=== PATIENT | male | born 1965 | race Caucasian/White ===

== ENCOUNTER 2017-06-12 03:06 | Observation (INO) | payer BC, OTHER ==
[2017-06-12] MEDS ORDERED: Aspirin 81 MG Tab.Chew PO ONE (03:29)
[2017-06-12] MEDS ORDERED: Nitroglycerin 2% Oint 1 GM UD Packet TOP ONE (03:29)
[2017-06-12] MEDS ORDERED: Sodium Chloride 0.9% 10 ML Syringe FLUSH PRN (03:29)
[2017-06-12] MEDS ORDERED: cloNIDine 0.1 MG Tab PO ONE ×2 (03:31→19:17)
[2017-06-12] MEDS: Sodium Chloride 0.9% 1,000 ML IV SCH ×2 (03:43→11:24)
--- NOTE | 2017-06-12 04:46 | EDM.PDOC ---
ED HPI GENERAL MEDICAL PROBLEM - General Stated Complaint: CHEST PAIN Time Seen by Provider: 06/12/17 03:40 Source of Information: Reports: Patient, Family History Limitations: Reports: No Limitations - History of Present Illness INITIAL COMMENTS - FREE TEXT/NARRATIVE: 51 y.o.w.m came to the ed due sudden onset of left sided chest pain radiating down his left arm while at rest, watching TV. Pt had an eye apointment last week when it was noted his BP was elevated to 175/98. He was advised to observe the BP closely for one week the F/U and start BP if indicated. His BP was today 185/113on arrival to the ED with is by PC. His CP was rated 8/10 radiating down his left arm. No Diaphoresis, no SOP, no Dizziness, no lightheadedness. Pt was a former smoker, had a cardiac stress test done 10 years ago which was neg. 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 CAD risk factors: Male, new onset of CP No other acute medical issues. Vital on arrival BP 209/117 temp 97.8 Pulse 59 RR 18 Pulse ox 100 Onset: Today Onset Date: 06/12/17 Onset Time: 01:00 Duration: Hour(s):, Constant, Intermittent Location: Reports: Chest Quality: Reports: Ache, Burning, Dull Severity: Moderate Improves with: Reports: Medication Worsens with: Reports: Movement Context: Reports: Other (CP) Associated Symptoms: Reports: Chest Pain Left Chest Pain Score (Numeric/FACES): 6 - Related Data Allergies Allergy/AdvReac Type Severity Reaction Status Date / Time Penicillins Allergy Hives Verified 06/12/17 03:54 prochlorperazine Allergy Muscle Verified 06/12/17 03:53 [From Compazine] Aches Home Meds: Home Meds Olopatadine HCl 1 drop EYEBOTH DAILY 06/12/17 [History] Omeprazole 20 mg PO DAILY 06/12/17 [History] Propranolol [Inderal LA 24 Hr] 60 mg PO DAILY 06/12/17 [History] SUMAtriptan 100 mg PO DAILY PRN 06/12/17 [History] ED ROS GENERAL - Review of Systems Review Of Systems: See Below Constitutional: Reports: No Symptoms HEENT: Reports: No Symptoms Respiratory: Reports: No Symptoms Cardiovascular: Reports: Chest Pain Endocrine: Reports: No Symptoms GI/Abdominal: Reports: No Symptoms : Reports: No Symptoms Musculoskeletal: Reports: No Symptoms Skin: Reports: No Symptoms Neurological: Reports: No Symptoms Psychiatric: Reports: No Symptoms Hematologic/Lymphatic: Reports: No Symptoms Immunologic: Reports: No Symptoms ED EXAM, GENERAL - Physical Exam Exam: See Below Exam Limited By: No Limitations General Appearance: Alert, WD/WN, Mild Distress Eye Exam: Bilateral Eye: Normal Inspection Ears: Normal External Exam Ear Exam: Bilateral Ear: Auricle Normal Nose: Normal Inspection, Normal Mucosa Throat/Mouth: Normal Inspection, Normal Lips, Normal Voice, No Airway Compromise Head: Atraumatic, Normocephalic Neck: Normal Inspection, Supple, Non-Tender Respiratory/Chest: No Respiratory Distress, Lungs Clear, Normal Breath Sounds, No Accessory Muscle Use, Chest Non-Tender Cardiovascular: Normal Peripheral Pulses, Regular Rate, Rhythm, No Edema, No Gallop, No JVD, No Murmur Peripheral Pulses: 1+: Brachial (L) GI/Abdominal: Normal Bowel Sounds, Soft, Non-Tender, No Organomegaly, No Distention, No Abnormal Bruit, No Mass, Pelvis Stable (Male) Exam: Deferred Rectal (Males) Exam: Deferred Back Exam: Normal Inspection, Full Range of Motion Extremities: Normal Inspection, Normal Range of Motion, Non-Tender, No Pedal Edema, Normal Capillary Refill Neurological: Alert, Oriented, CN II-XII Intact, Normal Cognition, Normal Gait, No Motor/Sensory Deficits Psychiatric: Normal Affect, Normal Mood Skin Exam: Warm, Dry, Intact, Normal Color, No Rash Lymphatic: No Adenopathy EKG INTERPRETATION EKG Date: 06/12/17 Time: 03:15 Rhythm: NSR Rate (Beats/Min): 57 [place]: Normal P-Wave: Present QRS: Normal ST-T: Normal QT: Normal Comparison: NA - No Prior EKG Course - Vital Signs Text/Narrative:: 51 y.o.w.m came to the ed due sudden onset of left sided chest pain radiating down his left arm while at rest, watching TV. Pt had an eye apointment last week when it was noted his BP was elevated to 175/98. He was advised to observe the BP closely for one week the F/U and start BP if indicated. His BP was today 185/113on arrival to the ED with is by PC. His CP was rated 8/10 radiating down his left arm. No Diaphoresis, no SOP, no Dizziness, no lightheadedness. Pt was a former smoker, had a cardiac stress test done 10 years ago which was neg. 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 CAD risk factors: Male, new onset of CP No other acute medical issues. Vital on arrival BP 209/117 temp 97.8 Pulse 59 RR 18 Pulse ox 100 PE: 51 y.o.w.m came with his to the ED due to CP at rest while watching TV of 8/10 going down his left arm Imaging: CXR: NAD Poor pentration Labs: WBC 17.5 H/H nl BMP nl Troponin 0.017 D Dimer < 100 INR 1.34 (not on coumadine) Lipid panel is pending Impression: HTN, unstable angina, knee arthritis Tx: ASA, NS, NTG, Clonidin, Lovenox 5.56 am Consultation: Dr. Gallegos, Public [employer] Service Supervisor, [facility]: Admit Pt to 2 more test troponin level, EKG, Check BP, if all good, Cardiac stress test as out patient Reexam: Improved, pain free, BECCA 115/67 HR 65 O2 sat on RA 98% Plan: Admit for obs Last Recorded V/S: Last Vital Signs Temp 36.9 C 06/12/17 12:45 Pulse 62 06/12/17 14:00 Resp 12 06/12/17 14:00 BP 148/89 H 06/12/17 14:00 Pulse Ox 96 06/12/17 14:00 - Orders/Labs/Meds Orders: Active Orders 24 hr Category Date Time Status Patient Status [ADT] Routine ADT 06/12/17 06:14 Active Bedrest Bathroom Privileges [RC] ASDIRECTED Care 06/12/17 06:13 Active Cardiac Monitoring [RC] 00,08,16 Care 06/12/17 06:15 Active Oxygen Therapy [RC] PRN Care 06/12/17 06:14 Active Pulse Oximetry [RC] CONTINUOUS Care 06/12/17 06:15 Active VTE/DVT Education [RC] Per Unit Routine Care 06/12/17 06:14 Active Vital Signs [RC] 00,04,08,12,16,20 Care 06/12/17 06:14 Active 2 Gram Sodium Diet [DIET] Diet 06/12/17 Breakfast Active Heart Healthy Diet [DIET] Diet 06/12/17 Breakfast Active UA W/MICROSCOPIC [URIN] Stat Lab 06/12/17 05:20 Ordered Ondansetron [Zofran] Med 06/12/17 06:13 Active 4 mg IV Q4H PRN Sodium Chloride 0.9% [Normal Saline] 1,000 ml Med 06/12/17 03:30 Active IV ASDIRECTED Sodium Chloride 0.9% [Saline Flush] Med 06/12/17 03:29 Active 10 ml FLUSH ASDIRECTED PRN Peripheral IV Insertion Adult [OM.PC] Routine Oth 06/12/17 03:29 Ordered Resuscitation Status Routine Resus Stat 06/12/17 06:13 Ordered EKG 12 Lead [EK] Routine Ther 06/12/17 03:15 Ordered Medication Orders Sodium Chloride (Normal Saline) 1,000 mls @ 125 mls/hr IV ASDIRECTED [facility] Last Admin: 06/12/17 11:24 Dose: 125 mls/hr Infusion: 06/12/17 11:24 Dose: 125 mls/hr Admin: 06/12/17 03:43 Dose: 125 mls/hr Ketotifen Fumarate (Ketotifen 0.025% Ophth Soln) 0 ml EYEBOTH BID [facility] Last Admin: 06/12/17 09:35 Dose: 1 drop Ondansetron HCl (Zofran) 4 mg IV Q4H PRN PRN Reason: Nausea/Vomiting Pantoprazole Sodium (Protonix) 40 mg PO DAILY@0600 [facility] Last Admin: 06/12/17 09:34 Dose: 40 mg Propranolol HCl (Inderal La) 60 mg PO DAILY [facility] Last Admin: 06/12/17 09:34 Dose: 60 mg Sodium Chloride (Saline Flush) 10 ml FLUSH ASDIRECTED PRN PRN Reason: Keep Vein Open Sumatriptan Succinate (Imitrex) 100 mg PO DAILY PRN PRN Reason: MIGRAINE HEADACHE Last Admin: 06/12/17 12:44 Dose: 100 mg Labs: Laboratory Tests 06/12/17 06/12/17 06/12/17 Range/Units 04:10 04:10 04:10 WBC 17.4 H (4.5-12.0) X10-3/uL RBC 4.87 (4.30-5.75) x10(6)uL Hgb 14.1 (11.5-15.5) g/dL Hct 41.2 (30.0-51.3) % MCV 84.5 (80-96) fL MCH 29.0 (27.7-33.6) pg MCHC 34.3 (32.2-35.4) g/dL RDW 12.5 (11.5-15.5) % Plt Count 154 (125-369) X10(3)uL MPV 7.6 (7.4-10.4) fL Add Manual Diff Yes Neutrophils % (Manual) 34 L (46-82) % Lymphocytes % (Manual) 58 H (13-37) % Monocytes % (Manual) 7 (4-12) % Eosinophils % (Manual) 1 (0-5) % PT 15.9 H (8.7-11.1) INR 1.56 H (0.89-1.13) D-Dimer, Quantitative (100-400) ng/mL Sodium 141 (135-145) mmol/L Potassium 3.7 (3.5-5.3) mmol/L Chloride 103 (100-110) mmol/L Carbon Dioxide 29 (21-32) mmol/L BUN 15 (7-18) mg/dL Creatinine 1.1 (0.70-1.30) mg/dL Est Cr Clr Drug Dosing TNP Estimated GFR (MDRD) > 60 (>60) BUN/Creatinine Ratio 13.6 (9-20) Glucose 103 (80-116) mg/dL Lactic Acid (0.4-2.2) mmol/L Calcium 9.0 (8.6-10.2) mg/dL Total Bilirubin (0.1-1.3) mg/dL Direct Bilirubin (0.10-0.20) mg/dL AST (5-25) IU/L ALT (12-36) U/L Alkaline Phosphatase (56-112) IU/L Troponin I (<0.017-0.056) ng/mL Total Protein (6.0-8.0) g/dL Albumin (3.5-5.2) g/dL Triglycerides (15-150) mg/dL Cholesterol (50-200) mg/dL LDL Cholesterol Direct (60-130) mg/dL HDL Cholesterol (40-75) mg/dL Cholesterol/HDL Ratio (0-5) Amylase (25-115) U/L Urine Color (YELLOW) Urine Appearance (CLEAR) Urine pH (5.0-6.5) Ur Specific [place] (1.010-1.025) Urine Protein (NEGATIVE) mg/dL Urine Glucose (UA) (NEGATIVE) mg/dL Urine Ketones (NEGATIVE) mg/dL Urine Occult Blood (NEGATIVE) Urine Nitrite (NEGATIVE) Urine Bilirubin (NEGATIVE) Urine Urobilinogen (NEGATIVE) mg/dL Ur Leukocyte Esterase (NEGATIVE) Urine RBC (0) Urine WBC (0) Ur Squamous Epith Cells (NS,R,O) Urine Bacteria (NS) 06/12/17 06/12/17 06/12/17 Range/Units 04:10 04:10 04:10 WBC (4.5-12.0) X10-3/uL RBC (4.30-5.75) x10(6)uL Hgb (11.5-15.5) g/dL Hct (30.0-51.3) % MCV (80-96) fL MCH (27.7-33.6) pg MCHC (32.2-35.4) g/dL RDW (11.5-15.5) % Plt Count (125-369) X10(3)uL MPV (7.4-10.4) fL Add Manual Diff Neutrophils % (Manual) (46-82) % Lymphocytes % (Manual) (13-37) % Monocytes % (Manual) (4-12) % Eosinophils % (Manual) (0-5) % PT (8.7-11.1) INR (0.89-1.13) D-Dimer, Quantitative < 100 L (100-400) ng/mL Sodium (135-145) mmol/L Potassium (3.5-5.3) mmol/L Chloride (100-110) mmol/L Carbon Dioxide (21-32) mmol/L BUN (7-18) mg/dL Creatinine (0.70-1.30) mg/dL Est Cr Clr Drug Dosing Estimated GFR (MDRD) (>60) BUN/Creatinine Ratio (9-20) Glucose (80-116) mg/dL Lactic Acid (0.4-2.2) mmol/L Calcium (8.6-10.2) mg/dL Total Bilirubin 0.9 (0.1-1.3) mg/dL Direct Bilirubin 0.15 (0.10-0.20) mg/dL AST 21 (5-25) IU/L ALT 38 H (12-36) U/L Alkaline Phosphatase 85 (56-112) IU/L Troponin I < 0.017 L (<0.017-0.056) ng/mL Total Protein 6.9 (6.0-8.0) g/dL Albumin 4.0 (3.5-5.2) g/dL Triglycerides (15-150) mg/dL Cholesterol (50-200) mg/dL LDL Cholesterol Direct (60-130) mg/dL HDL Cholesterol (40-75) mg/dL Cholesterol/HDL Ratio (0-5) Amylase 36 (25-115) U/L Urine Color (YELLOW) Urine Appearance (CLEAR) Urine pH (5.0-6.5) Ur Specific [place] (1.010-1.025) Urine Protein (NEGATIVE) mg/dL Urine Glucose (UA) (NEGATIVE) mg/dL Urine Ketones (NEGATIVE) mg/dL Urine Occult Blood (NEGATIVE) Urine Nitrite (NEGATIVE) Urine Bilirubin (NEGATIVE) Urine Urobilinogen (NEGATIVE) mg/dL Ur Leukocyte Esterase (NEGATIVE) Urine RBC (0) Urine WBC (0) Ur Squamous Epith Cells (NS,R,O) Urine Bacteria (NS) 06/12/17 06/12/17 06/12/17 Range/Units 04:10 04:10 05:20 WBC (4.5-12.0) X10-3/uL RBC (4.30-5.75) x10(6)uL Hgb (11.5-15.5) g/dL Hct (30.0-51.3) % MCV (80-96) fL MCH (27.7-33.6) pg MCHC (32.2-35.4) g/dL RDW (11.5-15.5) % Plt Count (125-369) X10(3)uL MPV (7.4-10.4) fL Add Manual Diff Neutrophils % (Manual) (46-82) % Lymphocytes % (Manual) (13-37) % Monocytes % (Manual) (4-12) % Eosinophils % (Manual) (0-5) % PT (8.7-11.1) INR (0.89-1.13) D-Dimer, Quantitative (100-400) ng/mL Sodium (135-145) mmol/L Potassium (3.5-5.3) mmol/L Chloride (100-110) mmol/L Carbon Dioxide (21-32) mmol/L BUN (7-18) mg/dL Creatinine (0.70-1.30) mg/dL Est Cr Clr Drug Dosing Estimated GFR (MDRD) (>60) BUN/Creatinine Ratio (9-20) Glucose (80-116) mg/dL Lactic Acid 1.6 (0.4-2.2) mmol/L Calcium (8.6-10.2) mg/dL Total Bilirubin (0.1-1.3) mg/dL Direct Bilirubin (0.10-0.20) mg/dL AST (5-25) IU/L ALT (12-36) U/L Alkaline Phosphatase (56-112) IU/L Troponin I (<0.017-0.056) ng/mL Total Protein (6.0-8.0) g/dL Albumin (3.5-5.2) g/dL Triglycerides 167 H (15-150) mg/dL Cholesterol 184 (50-200) mg/dL LDL Cholesterol Direct 122 (60-130) mg/dL HDL Cholesterol 32 L (40-75) mg/dL Cholesterol/HDL Ratio 5.8 H (0-5) Amylase (25-115) U/L Urine Color Yellow (YELLOW) Urine Appearance Clear (CLEAR) Urine pH 6.0 (5.0-6.5) Ur Specific [place] 1.010 (1.010-1.025) Urine Protein Negative (NEGATIVE) mg/dL Urine Glucose (UA) Normal (NEGATIVE) mg/dL Urine Ketones Negative (NEGATIVE) mg/dL Urine Occult Blood Negative (NEGATIVE) Urine Nitrite Negative (NEGATIVE) Urine Bilirubin Negative (NEGATIVE) Urine Urobilinogen Normal (NEGATIVE) mg/dL Ur Leukocyte Esterase Negative (NEGATIVE) Urine RBC 0-5 (0) Urine WBC 0-5 (0) Ur Squamous Epith Cells Occasional (NS,R,O) Urine Bacteria Few H (NS) Meds: Medications Generic Name Dose Route Start Last Admin Trade Name Freq PRN Reason Stop Dose Admin Sodium Chloride 1,000 mls @ 125 mls/hr 06/12/17 03:30 06/12/17 11:24 Normal Saline IV 125 mls/hr ASDIRECTED SHAWNA Administration Ketotifen Fumarate 0 ml 06/12/17 10:00 06/12/17 09:35 Ketotifen 0.025% Ophth Soln EYEBOTH 1 drop BID SHAWNA Administration Ondansetron HCl 4 mg 06/12/17 06:13 Zofran IV Q4H PRN Nausea/Vomiting Pantoprazole Sodium 40 mg 06/12/17 09:30 06/12/17 09:34 Protonix PO 40 mg DAILY@0600 SHAWNA Administration Propranolol HCl 60 mg 06/12/17 09:00 06/12/17 09:34 Inderal La PO 60 mg DAILY SHAWAN Administration Sodium Chloride 10 ml 06/12/17 03:29 Saline Flush FLUSH ASDIRECTED PRN Keep Vein Open Sumatriptan Succinate 100 mg 06/12/17 09:00 06/12/17 12:44 Imitrex PO 100 mg DAILY PRN Administration MIGRAINE HEADACHE Discontinued Medications Generic Name Dose Route Start Last Admin Trade Name Freq PRN Reason Stop Dose Admin Acetaminophen 650 mg 06/12/17 06:15 06/12/17 06:22 Tylenol PO 06/12/17 06:16 650 mg NOW ONE Administration Aspirin 324 mg 06/12/17 03:29 06/12/17 03:20 Aspirin PO 06/12/17 03:30 324 mg ONETIME ONE Administration Clonidine HCl 0.1 mg 06/12/17 03:31 06/12/17 03:40 Catapres PO 06/12/17 03:32 0.1 mg ONETIME ONE Administration Enoxaparin Sodium 80 mg 06/12/17 06:11 06/12/17 06:22 Lovenox SUBCUT 06/12/17 06:12 80 mg ONETIME ONE Administration Nitroglycerin 1 gm 06/12/17 03:29 06/12/17 03:41 Nitro-Bid 2% TOP 06/12/17 03:30 1 gm ONETIME ONE Administration Pantoprazole Sodium 40 mg 06/12/17 06:15 06/12/17 06:22 Protonix Iv IVPUSH 40 mg Q12H SHAWNA Administration Departure - Departure Time of Disposition: 04:00 Disposition: Refer to Observation Condition: Fair Clinical Impression: Unstable angina pectoris HTN (hypertension) Qualifiers: Hypertension type: essential hypertension Qualified Code(s): I10 - Essential ( primary) hypertension - My Orders Last 24 Hours: My Active Orders 06/12/17 03:15 EKG 12 Lead [EK] Routine 06/12/17 03:29 Sodium Chloride 0.9% [Saline Flush] 10 ml FLUSH ASDIRECTED PRN Peripheral IV Insertion Adult [OM.PC] Routine 06/12/17 03:30 Sodium Chloride 0.9% [Normal Saline] 1,000 ml IV ASDIRECTED 06/12/17 05:20 UA W/MICROSCOPIC [URIN] Stat 06/12/17 06:13 Bedrest Bathroom Privileges [RC] ASDIRECTED Ondansetron [Zofran] 4 mg IV Q4H PRN Resuscitation Status Routine 06/12/17 06:14 Patient Status [ADT] Routine Oxygen Therapy [RC] PRN VTE/DVT Education [RC] Per Unit Routine Vital Signs [RC] 00,04,08,12,16,20 06/12/17 06:15 Cardiac Monitoring [RC] 00,08,16 Pulse Oximetry [RC] CONTINUOUS 06/12/17 Breakfast 2 Gram Sodium Diet [DIET] Heart Healthy Diet [DIET] - Assessment/Plan Last 24 Hours: My Active Orders 06/12/17 03:15 EKG 12 Lead [EK] Routine 06/12/17 03:29 Sodium Chloride 0.9% [Saline Flush] 10 ml FLUSH ASDIRECTED PRN Peripheral IV Insertion Adult [OM.PC] Routine 06/12/17 03:30 Sodium Chloride 0.9% [Normal Saline] 1,000 ml IV ASDIRECTED 06/12/17 05:20 UA W/MICROSCOPIC [URIN] Stat 06/12/17 06:13 Bedrest Bathroom Privileges [RC] ASDIRECTED Ondansetron [Zofran] 4 mg IV Q4H PRN Resuscitation Status Routine 06/12/17 06:14 Patient Status [ADT] Routine Oxygen Therapy [RC] PRN VTE/DVT Education [RC] Per Unit Routine Vital Signs [RC] 00,04,08,12,16,20 06/12/17 06:15 Cardiac Monitoring [RC] 00,08,16 Pulse Oximetry [RC] CONTINUOUS 06/12/17 Breakfast 2 Gram Sodium Diet [DIET] Heart Healthy Diet [DIET]
[2017-06-12] MEDS ORDERED: Enoxaparin 80 MG/0.8 ML Syringe SUBCUT ONE (06:11)
[2017-06-12] MEDS ORDERED: Ondansetron 4 MG/2 ML SDV IV PRN (06:13)
[2017-06-12] MEDS ORDERED: Pantoprazole 40 MG Vial IVPUSH SCH (06:15)
[2017-06-12] MEDS ORDERED: Acetaminophen 325 MG Tab PO ONE (06:15)
[2017-06-12] MEDS ORDERED: SUMAtriptan 50 MG Tab PO PRN (09:00)
--- NOTE | 2017-06-12 09:19 | PCM.HP ---
H&P History of Present Illness - General Date of Service: 06/12/17 Admit Problem/Dx: Admission Diagnosis/Problem Admission Diagnosis/Problem Unstable angina pectoris Source of Information: Patient History Limitations: Reports: No Limitations - History of Present Illness Initial Comments - Free Text/Narative: Jules is a 51-year-old male with chest pain that started about 8 PM last night. He described a push or pressure on the left side that goes up to the center of the chest [id number] intensity got worse overnight prompting an ER visit. The pain has subsided since still continues. His denies prabha stress and/or shortness of breath, nausea or vomiting. He had a similar episode 10 years ago after he took Maxalt. He denies being stressed, neither does he have any headache fever chills. While in the clinic last week his blood pressure was in the 170s systolic. 200s this morning in the ER. Left Chest Pain Score (Numeric/FACES): 1 - Related Data Allergies/Adverse Reactions: Allergies Allergy/AdvReac Type Severity Reaction Status Date / Time Penicillins Allergy Hives Verified 06/12/17 03:54 prochlorperazine Allergy Muscle Verified 06/12/17 03:53 [From Compazine] Aches Home Medications: Home Meds Olopatadine HCl 1 drop EYEBOTH DAILY 06/12/17 [History] Omeprazole 20 mg PO DAILY 06/12/17 [History] Propranolol [Inderal LA 24 Hr] 60 mg PO DAILY 06/12/17 [History] SUMAtriptan 100 mg PO DAILY PRN 06/12/17 [History] Past Medical History Cardiovascular History: Reports: Hypertension, Other (See Below) Other Cardiovascular History: States history of chest pain. Respiratory History: Reports: Sleep Apnea, Other (See Below) Other Respiratory History: Is suppose to wear CPAP, doesn't always. Gastrointestinal History: Reports: GERD Musculoskeletal History: Reports: Other (See Below) Other Musculoskeletal History: States history of right elbow injury. Neurological History: Reports: Migraines - Past Surgical History HEENT Surgical History: Reports: Cataract Surgery, Other (See Below) Other HEENT Surgeries/Procedures: States cataract and retina surgery OU. Cardiovascular Surgical History: Reports: Other (See Below) Other Cardiovascular Surgeries/Procedures: States history of stress test. Musculoskeletal Surgical History: Reports: Arthroscopic Knee, Other (See Below) Other Musculoskeletal Surgeries/Procedures:: States left and right knee scopes. Social & Family History - Family History Cardiac: Reports: Bypass Respiratory: Reports: COPD - Tobacco Use Smoking Status *Q: Former Smoker Years of Tobacco use: 30 Used Tobacco, but Quit: Yes Month/Year Tobacco Last Used: 1999 Second Hand Smoke Exposure: No - Caffeine Use Caffeine Use: Reports: Coffee, Soda - Alcohol Use Days Per Week of Alcohol Use: 1 Number of Drinks Per Day: 1 Total Drinks Per Week: 1 - Recreational Drug Use Recreational Drug Use: No H&P Review of Systems - Review of Systems: Review Of Systems: ROS reveals no pertinent complaints other than HPI. Exam - Exam Exam: See Below - Vital Signs Vital Signs: Last Vital Signs Temp 97.7 F 06/12/17 07:12 Pulse 64 06/12/17 09:01 Resp 12 06/12/17 09:01 BP 112/67 06/12/17 09:01 Pulse Ox 97 06/12/17 09:01 Weight: 86.183 kg - Exam General: Alert, Oriented, 4 HEENT: PERRLA, Hearing Intact, Mucosa Moist & [place], Nares Patent, Normal Nasal Septum, Posterior Pharynx Clear, Conjunctiva Clear, EOMI, EACs Clear, TMs Clear Neck: Supple, Trachea Midline, 2 Lungs: Clear to Auscultation, Normal Respiratory Effort Cardiovascular: Regular Rate, Regular Rhythm GI/Abdominal Exam: Normal Bowel Sounds, Soft, Non-Tender, No Organomegaly, No Distention, No Abnormal Bruit, No Mass, Pelvis Stable (Male) Exam: Deferred Rectal (Males) Exam: Deferred Back Exam: Normal Inspection, Full Range of Motion, NT Extremities: Normal Inspection, Normal Range of Motion, Non-Tender, No Pedal Edema, Normal Capillary Refill Skin: Warm, Dry, Intact Neurological: Cranial Nerves Intact, Reflexes Equal Bilateral Neuro Extensive - Mental Status: Alert, Oriented x3, Normal Mood/Affect, Normal Cognition Neuro Extensive - Motor, Sensory, Reflexes: CN II-XII Intact, Normal Gait, Normal Reflexes Psychiatric: Alert, Normal Affect, Normal Mood - Patient Data Lab Results Last 24 hrs: Laboratory Results - last 24 hr 06/12/17 06/12/17 06/12/17 Range/Units 04:10 04:10 04:10 WBC 17.4 H (4.5-12.0) X10-3/uL RBC 4.87 (4.30-5.75) x10(6)uL Hgb 14.1 (11.5-15.5) g/dL Hct 41.2 (30.0-51.3) % MCV 84.5 (80-96) fL MCH 29.0 (27.7-33.6) pg MCHC 34.3 (32.2-35.4) g/dL RDW 12.5 (11.5-15.5) % Plt Count 154 (125-369) X10(3)uL MPV 7.6 (7.4-10.4) fL Add Manual Diff Yes Neutrophils % (Manual) 34 L (46-82) % Lymphocytes % (Manual) 58 H (13-37) % Monocytes % (Manual) 7 (4-12) % Eosinophils % (Manual) 1 (0-5) % PT 15.9 H (8.7-11.1) INR 1.56 H (0.89-1.13) D-Dimer, Quantitative (100-400) ng/mL Sodium 141 (135-145) mmol/L Potassium 3.7 (3.5-5.3) mmol/L Chloride 103 (100-110) mmol/L Carbon Dioxide 29 (21-32) mmol/L BUN 15 (7-18) mg/dL Creatinine 1.1 (0.70-1.30) mg/dL Est Cr Clr Drug Dosing TNP Estimated GFR (MDRD) > 60 (>60) BUN/Creatinine Ratio 13.6 (9-20) Glucose 103 (80-116) mg/dL Lactic Acid (0.4-2.2) mmol/L Calcium 9.0 (8.6-10.2) mg/dL Total Bilirubin (0.1-1.3) mg/dL Direct Bilirubin (0.10-0.20) mg/dL AST (5-25) IU/L ALT (12-36) U/L Alkaline Phosphatase (56-112) IU/L Troponin I (<0.017-0.056) ng/mL Total Protein (6.0-8.0) g/dL Albumin (3.5-5.2) g/dL Triglycerides (15-150) mg/dL Cholesterol (50-200) mg/dL LDL Cholesterol Direct (60-130) mg/dL HDL Cholesterol (40-75) mg/dL Cholesterol/HDL Ratio (0-5) Amylase (25-115) U/L Urine Color (YELLOW) Urine Appearance (CLEAR) Urine pH (5.0-6.5) Ur Specific [place] (1.010-1.025) Urine Protein (NEGATIVE) mg/dL Urine Glucose (UA) (NEGATIVE) mg/dL Urine Ketones (NEGATIVE) mg/dL Urine Occult Blood (NEGATIVE) Urine Nitrite (NEGATIVE) Urine Bilirubin (NEGATIVE) Urine Urobilinogen (NEGATIVE) mg/dL Ur Leukocyte Esterase (NEGATIVE) Urine RBC (0) Urine WBC (0) Ur Squamous Epith Cells (NS,R,O) Urine Bacteria (NS) 06/12/17 06/12/17 06/12/17 Range/Units 04:10 04:10 04:10 WBC (4.5-12.0) X10-3/uL RBC (4.30-5.75) x10(6)uL Hgb (11.5-15.5) g/dL Hct (30.0-51.3) % MCV (80-96) fL MCH (27.7-33.6) pg MCHC (32.2-35.4) g/dL RDW (11.5-15.5) % Plt Count (125-369) X10(3)uL MPV (7.4-10.4) fL Add Manual Diff Neutrophils % (Manual) (46-82) % Lymphocytes % (Manual) (13-37) % Monocytes % (Manual) (4-12) % Eosinophils % (Manual) (0-5) % PT (8.7-11.1) INR (0.89-1.13) D-Dimer, Quantitative < 100 L (100-400) ng/mL Sodium (135-145) mmol/L Potassium (3.5-5.3) mmol/L Chloride (100-110) mmol/L Carbon Dioxide (21-32) mmol/L BUN (7-18) mg/dL Creatinine (0.70-1.30) mg/dL Est Cr Clr Drug Dosing Estimated GFR (MDRD) (>60) BUN/Creatinine Ratio (9-20) Glucose (80-116) mg/dL Lactic Acid (0.4-2.2) mmol/L Calcium (8.6-10.2) mg/dL Total Bilirubin 0.9 (0.1-1.3) mg/dL Direct Bilirubin 0.15 (0.10-0.20) mg/dL AST 21 (5-25) IU/L ALT 38 H (12-36) U/L Alkaline Phosphatase 85 (56-112) IU/L Troponin I < 0.017 L (<0.017-0.056) ng/mL Total Protein 6.9 (6.0-8.0) g/dL Albumin 4.0 (3.5-5.2) g/dL Triglycerides (15-150) mg/dL Cholesterol (50-200) mg/dL LDL Cholesterol Direct (60-130) mg/dL HDL Cholesterol (40-75) mg/dL Cholesterol/HDL Ratio (0-5) Amylase 36 (25-115) U/L Urine Color (YELLOW) Urine Appearance (CLEAR) Urine pH (5.0-6.5) Ur Specific [place] (1.010-1.025) Urine Protein (NEGATIVE) mg/dL Urine Glucose (UA) (NEGATIVE) mg/dL Urine Ketones (NEGATIVE) mg/dL Urine Occult Blood (NEGATIVE) Urine Nitrite (NEGATIVE) Urine Bilirubin (NEGATIVE) Urine Urobilinogen (NEGATIVE) mg/dL Ur Leukocyte Esterase (NEGATIVE) Urine RBC (0) Urine WBC (0) Ur Squamous Epith Cells (NS,R,O) Urine Bacteria (NS) 06/12/17 06/12/17 06/12/17 Range/Units 04:10 04:10 05:20 WBC (4.5-12.0) X10-3/uL RBC (4.30-5.75) x10(6)uL Hgb (11.5-15.5) g/dL Hct (30.0-51.3) % MCV (80-96) fL MCH (27.7-33.6) pg MCHC (32.2-35.4) g/dL RDW (11.5-15.5) % Plt Count (125-369) X10(3)uL MPV (7.4-10.4) fL Add Manual Diff Neutrophils % (Manual) (46-82) % Lymphocytes % (Manual) (13-37) % Monocytes % (Manual) (4-12) % Eosinophils % (Manual) (0-5) % PT (8.7-11.1) INR (0.89-1.13) D-Dimer, Quantitative (100-400) ng/mL Sodium (135-145) mmol/L Potassium (3.5-5.3) mmol/L Chloride (100-110) mmol/L Carbon Dioxide (21-32) mmol/L BUN (7-18) mg/dL Creatinine (0.70-1.30) mg/dL Est Cr Clr Drug Dosing Estimated GFR (MDRD) (>60) BUN/Creatinine Ratio (9-20) Glucose (80-116) mg/dL Lactic Acid 1.6 (0.4-2.2) mmol/L Calcium (8.6-10.2) mg/dL Total Bilirubin (0.1-1.3) mg/dL Direct Bilirubin (0.10-0.20) mg/dL AST (5-25) IU/L ALT (12-36) U/L Alkaline Phosphatase (56-112) IU/L Troponin I (<0.017-0.056) ng/mL Total Protein (6.0-8.0) g/dL Albumin (3.5-5.2) g/dL Triglycerides 167 H (15-150) mg/dL Cholesterol 184 (50-200) mg/dL LDL Cholesterol Direct 122 (60-130) mg/dL HDL Cholesterol 32 L (40-75) mg/dL Cholesterol/HDL Ratio 5.8 H (0-5) Amylase (25-115) U/L Urine Color Yellow (YELLOW) Urine Appearance Clear (CLEAR) Urine pH 6.0 (5.0-6.5) Ur Specific [place] 1.010 (1.010-1.025) Urine Protein Negative (NEGATIVE) mg/dL Urine Glucose (UA) Normal (NEGATIVE) mg/dL Urine Ketones Negative (NEGATIVE) mg/dL Urine Occult Blood Negative (NEGATIVE) Urine Nitrite Negative (NEGATIVE) Urine Bilirubin Negative (NEGATIVE) Urine Urobilinogen Normal (NEGATIVE) mg/dL Ur Leukocyte Esterase Negative (NEGATIVE) Urine RBC 0-5 (0) Urine WBC 0-5 (0) Ur Squamous Epith Cells Occasional (NS,R,O) Urine Bacteria Few H (NS) Result Diagrams: 06/12/17 04:10 06/12/17 04:10 Imaging Impressions Last 24 hrs: CXR-neg EKG INTERPRETATION Rhythm: NSR - Problem List (1) Chest pain SNOMED Code(s): 45108111 ICD Code: R07.9 - CHEST PAIN, UNSPECIFIED Status: Acute Current Visit: Yes Qualifiers: Chest pain type: other chest pain Qualified Code(s): R07.89 - Other chest pain; R07.8 - Other chest pain (2) HTN (hypertension) SNOMED Code(s): 95043189 ICD Code: I10 - ESSENTIAL (PRIMARY) HYPERTENSION Status: Acute Current Visit: Yes Qualifiers: Hypertension type: essential hypertension Qualified Code(s): I10 - Essential (primary) hypertension (3) Migraine SNOMED Code(s): 97448139 ICD Code: G43.909 - MIGRAINE, UNSP, NOT INTRACTABLE, WITHOUT STATUS MIGRAINOSUS Status: Chronic Current Visit: Yes (4) GERD (gastroesophageal reflux disease) SNOMED Code(s): 986115151 ICD Code: K21.9 - GASTRO-ESOPHAGEAL REFLUX DISEASE WITHOUT ESOPHAGITIS Status: Chronic Current Visit: Yes Qualifiers: Esophagitis presence: without esophagitis Qualified Code(s): K21.9 - Gastro -esophageal reflux disease without esophagitis (5) HLD (hyperlipidemia) SNOMED Code(s): 74690479 ICD Code: E78.5 - HYPERLIPIDEMIA, UNSPECIFIED Status: Acute Current Visit : Yes Qualifiers: Hyperlipidemia type: unspecified Qualified Code(s): E78.5 - Hyperlipidemia , unspecified (6) Leukocytosis SNOMED Code(s): 806708688, 848372865 ICD Code: D72.829 - ELEVATED WHITE BLOOD CELL COUNT, UNSPECIFIED Status: Acute Current Visit: Yes Qualifiers: Leukocytosis type: unspecified Qualified Code(s): D72.829 - Elevated white blood cell count, unspecified Problem List Initiated/Reviewed/Updated: Yes Orders Last 24hrs: Active Orders 24 hr Category Date Time Status Patient Status [ADT] Routine ADT 06/12/17 06:14 Active Bedrest Bathroom Privileges [RC] ASDIRECTED Care 06/12/17 06:13 Active Cardiac Monitoring [RC] 00,08,16 Care 06/12/17 06:15 Active EKG Documentation Completion [RC] ASDIRECTED Care 06/12/17 03:15 Active EKG Documentation Completion [RC] ASDIRECTED Care 06/12/17 06:19 Active EKG Documentation Completion [RC] ASDIRECTED Care 06/12/17 09:12 Ordered Height and Weight [RC] DAILY Care 06/12/17 09:10 Ordered Oxygen Therapy [RC] PRN Care 06/12/17 06:14 Active Oxygen Therapy [RC] PRN Care 06/12/17 09:11 Ordered Pulse Oximetry [RC] CONTINUOUS Care 06/12/17 06:15 Active VTE/DVT Education [RC] Per Unit Routine Care 06/12/17 06:14 Active VTE/DVT Education [RC] Per Unit Routine Care 06/12/17 09:11 Ordered Vital Signs [RC] 00,04,08,12,16,20 Care 06/12/17 06:14 Active Vital Signs [RC] Q4H Care 06/12/17 09:11 Ordered 2 Gram Sodium Diet [DIET] Diet 06/12/17 Breakfast Active Heart Healthy Diet [DIET] Diet 06/12/17 Breakfast Active CXR [Chest 1V Frontal] [CR] Stat Exams 06/12/17 04:41 Taken CBC WITH AUTO DIFF [HEME] AM Lab 06/13/17 05:11 Ordered COMPREHENSIVE METABOLIC PN,CMP [CHEM] AM Lab 06/13/17 05:11 Ordered TROPONIN I [CHEM] AM Lab 06/13/17 05:11 Ordered TROPONIN I [CHEM] Stat Lab 06/12/17 09:15 Ordered UA W/MICROSCOPIC [URIN] Stat Lab 06/12/17 05:20 Ordered Olopatadine [Pataday 0.2% Ophth Soln] Med 06/13/17 09:00 Ordered 1 drop EYEBOTH DAILY Omeprazole [Omeprazole] Med 06/13/17 09:00 Ordered 20 mg PO DAILY Ondansetron [Zofran] Med 06/12/17 06:13 Active 4 mg IV Q4H PRN Pantoprazole [ProTONIX IV] Med 06/12/17 06:15 Active 40 mg IVPUSH Q12H Propranolol [Inderal LA] Med 06/13/17 09:00 Ordered 60 mg PO DAILY SUMAtriptan [SUMAtriptan] Med 06/12/17 09:12 Ordered 100 mg PO DAILY PRN Sodium Chloride 0.9% [Normal Saline] 1,000 ml Med 06/12/17 03:30 Active IV ASDIRECTED Sodium Chloride 0.9% [Saline Flush] Med 06/12/17 03:29 Active 10 ml FLUSH ASDIRECTED PRN Peripheral IV Insertion Adult [OM.PC] Routine Oth 06/12/17 03:29 Ordered Resuscitation Status Routine Resus Stat 06/12/17 06:13 Ordered EKG 12 Lead [EK] AM Ther 06/13/17 05:11 Ordered EKG 12 Lead [EK] Routine Ther 06/12/17 03:15 Ordered EKG 12 Lead [EK] Routine Ther 06/12/17 09:15 Ordered Medication Orders Sodium Chloride (Normal Saline) 1,000 mls @ 125 mls/hr IV ASDIRECTED [facility] Last Admin: 06/12/17 03:43 Dose: 125 mls/hr Non-Formulary Medication (Omeprazole [Omeprazole]) 20 mg PO DAILY [facility] Non-Formulary Medication (Sumatriptan [Sumatriptan]) 100 mg PO DAILY PRN PRN Reason: migraine headache Olopatadine HCl (Pataday 0.2% Ophth Soln) ml EYEBOTH DAILY [facility] Ondansetron HCl (Zofran) 4 mg IV Q4H PRN PRN Reason: Nausea/Vomiting Pantoprazole Sodium (Protonix Iv) 40 mg IVPUSH Q12H [facility] Last Admin: 06/12/17 06:22 Dose: 40 mg Propranolol HCl (Inderal La) 60 mg PO DAILY [facility] Sodium Chloride (Saline Flush) 10 ml FLUSH ASDIRECTED PRN PRN Reason: Keep Vein Open Assessment/Plan Comment:: I personally reviewed the chest x-ray and EKG. I do not find any thing acute. His white cell count is high but possibly due to an upper infection recently suffered. We'll repeat cardiac enzymes 3, EKG the morning and discharge him then if his symptoms are stable and he is in the test negative for an outpatient stress test.
[2017-06-12] MEDS: Pantoprazole 40 MG Tab.CR PO SCH (09:34)
[2017-06-12] MEDS: Propranolol 60 MG Cap.ER PO SCH (09:34)
[2017-06-12] MEDS: Ketotifen 0.025% Ophth Soln 5 ML Bottle EYEBOTH SCH ×2 (09:35→21:38)
--- NOTE | 2017-06-12 10:22 | CR ---
INDICATION: Chest pain. CHEST: An AP upright portable view of the chest 06/12/2017 was compared with and revealed the heart size to be stable in appearance with no specific chamber enlargement. The aorta is somewhat tortuous on the new study, compatible with progressive ASD aorta. Overlying EKG leads are noted. A definite active infiltrate or effusion was not identified. IMPRESSION: 1. No acute process. 2. ASD aorta - a new finding. MTDD
[2017-06-12] MEDS ORDERED: Ketorolac 30 MG/ML SDV IVPUSH PRN (17:11)
[2017-06-12] MEDS ORDERED: SUMAtriptan 6 MG/0.5 ML SDV SUBCUT ONE (17:11)
[2017-06-13] MEDS: Pantoprazole 40 MG Tab.CR PO SCH (06:36)
--- NOTE | 2017-06-13 08:31 | PCM.PN ---
- General Info Date of Service: 06/13/17 Subjective Update: Jules feels better today. He still has a headache on and off and the chest pain is down to 1 out of 10. - Review of Systems HEENT: Reports: Headaches Cardiovascular: Reports: Chest Pain Gastrointestinal: Reports: No Symptoms Genitourinary: Reports: No Symptoms Musculoskeletal: Reports: No Symptoms - Patient Data Vitals - Most Recent: Last Vital Signs Temp 97.4 F 06/13/17 08:00 Pulse 62 06/13/17 08:00 Resp 18 06/13/17 08:00 BP 142/94 H 06/13/17 08:00 Pulse Ox 96 06/13/17 08:00 Weight - Most Recent: 86 kg Lab Results Last 24 Hours: Laboratory Results - last 24 hr 06/12/17 06/12/17 06/13/17 Range/Units 09:15 16:05 06:30 WBC 14.2 H (4.5-12.0) X10-3/uL RBC 4.55 (4.30-5.75) x10(6)uL Hgb 13.5 (11.5-15.5) g/dL Hct 38.3 (30.0-51.3) % MCV 84.2 (80-96) fL MCH 29.6 (27.7-33.6) pg MCHC 35.1 (32.2-35.4) g/dL RDW 12.5 (11.5-15.5) % Plt Count 137 (125-369) X10(3)uL MPV 7.8 (7.4-10.4) fL Add Manual Diff Yes Neutrophils % (Manual) 36 L (46-82) % Lymphocytes % (Manual) 56 H (13-37) % Monocytes % (Manual) 6 (4-12) % Eosinophils % (Manual) 2 (0-5) % Sodium (135-145) mmol/L Potassium (3.5-5.3) mmol/L Chloride (100-110) mmol/L Carbon Dioxide (21-32) mmol/L BUN (7-18) mg/dL Creatinine (0.70-1.30) mg/dL Est Cr Clr Drug Dosing mL/min Estimated GFR (MDRD) (>60) BUN/Creatinine Ratio (9-20) Glucose (80-116) mg/dL Calcium (8.6-10.2) mg/dL Total Bilirubin (0.1-1.3) mg/dL AST (5-25) IU/L ALT (12-36) U/L Alkaline Phosphatase (56-112) IU/L Troponin I < 0.017 L < 0.017 L (<0.017-0.056) ng/mL Total Protein (6.0-8.0) g/dL Albumin (3.5-5.2) g/dL Globulin g/dL Albumin/Globulin Ratio 06/13/17 06/13/17 Range/Units 06:30 06:30 WBC (4.5-12.0) X10-3/uL RBC (4.30-5.75) x10(6)uL Hgb (11.5-15.5) g/dL Hct (30.0-51.3) % MCV (80-96) fL MCH (27.7-33.6) pg MCHC (32.2-35.4) g/dL RDW (11.5-15.5) % Plt Count (125-369) X10(3)uL MPV (7.4-10.4) fL Add Manual Diff Neutrophils % (Manual) (46-82) % Lymphocytes % (Manual) (13-37) % Monocytes % (Manual) (4-12) % Eosinophils % (Manual) (0-5) % Sodium 140 (135-145) mmol/L Potassium 3.6 (3.5-5.3) mmol/L Chloride 105 (100-110) mmol/L Carbon Dioxide 28 (21-32) mmol/L BUN 15 (7-18) mg/dL Creatinine 1.1 (0.70-1.30) mg/dL Est Cr Clr Drug Dosing 76.86 mL/min Estimated GFR (MDRD) > 60 (>60) BUN/Creatinine Ratio 13.6 (9-20) Glucose 103 (80-116) mg/dL Calcium 8.4 L (8.6-10.2) mg/dL Total Bilirubin 0.9 (0.1-1.3) mg/dL AST 18 D (5-25) IU/L ALT 37 H (12-36) U/L Alkaline Phosphatase 75 (56-112) IU/L Troponin I < 0.017 L (<0.017-0.056) ng/mL Total Protein 6.3 (6.0-8.0) g/dL Albumin 3.5 (3.5-5.2) g/dL Globulin 2.8 g/dL Albumin/Globulin Ratio 1.3 Med Orders - Current: Current Medications Ketorolac Tromethamine (Toradol) 30 mg IVPUSH Q6H PRN PRN Reason: Chest Pain Stop: 06/17/17 17:11 Last Admin: 06/12/17 17:40 Dose: 30 mg Ketotifen Fumarate (Ketotifen 0.025% Ophth Soln) 0 ml EYEBOTH BID [facility] Last Admin: 06/12/17 21:38 Dose: 1 drop Ondansetron HCl (Zofran) 4 mg IV Q4H PRN PRN Reason: Nausea/Vomiting Pantoprazole Sodium (Protonix) 40 mg PO DAILY@0600 [facility] Last Admin: 06/13/17 06:36 Dose: 40 mg Propranolol HCl (Inderal La) 60 mg PO DAILY [facility] Last Admin: 06/12/17 09:34 Dose: 60 mg Sodium Chloride (Saline Flush) 10 ml FLUSH ASDIRECTED PRN PRN Reason: Keep Vein Open Sumatriptan Succinate (Imitrex) 100 mg PO DAILY PRN PRN Reason: MIGRAINE HEADACHE Last Admin: 06/12/17 12:44 Dose: 100 mg Discontinued Medications Acetaminophen (Tylenol) 650 mg PO NOW ONE Stop: 06/12/17 06:16 Last Admin: 06/12/17 06:22 Dose: 650 mg Aspirin (Aspirin) 324 mg PO ONETIME ONE Stop: 06/12/17 03:30 Last Admin: 06/12/17 03:20 Dose: 324 mg Clonidine HCl (Catapres) 0.1 mg PO ONETIME ONE Stop: 06/12/17 03:32 Last Admin: 06/12/17 03:40 Dose: 0.1 mg Clonidine HCl (Catapres) 0.1 mg PO ONETIME ONE Stop: 06/12/17 19:18 Last Admin: 06/12/17 19:33 Dose: 0.1 mg Enoxaparin Sodium (Lovenox) 80 mg SUBCUT ONETIME ONE Stop: 06/12/17 06:12 Last Admin: 06/12/17 06:22 Dose: 80 mg Sodium Chloride (Normal Saline) 1,000 mls @ 125 mls/hr IV ASDIRECTED [facility] Stop: 06/12/17 17:45 Last Admin: 06/12/17 11:24 Dose: 125 mls/hr Nitroglycerin (Nitro-Bid 2%) 1 gm TOP ONETIME ONE Stop: 06/12/17 03:30 Last Admin: 06/12/17 03:41 Dose: 1 gm Pantoprazole Sodium (Protonix Iv) 40 mg IVPUSH Q12H [facility] Last Admin: 06/12/17 06:22 Dose: 40 mg Sumatriptan Succinate (Imitrex) 6 mg SUBCUT ONETIME ONE Stop: 06/12/17 17:12 Last Admin: 06/12/17 17:41 Dose: 6 mg - Exam Quality Assessment: No: Supplemental Oxygen General: Alert, Oriented HEENT: Pupils Equal Neck: Supple Lungs: Clear to Auscultation Cardiovascular: Regular Rate EKG INTERPRETATION EKG Date: 06/13/17 Rhythm: NSR - Problem List & Annotations (1) Chest pain SNOMED Code(s): 55743580 Code(s): R07.9 - CHEST PAIN, UNSPECIFIED Status: Acute Current Visit: Yes Qualifiers: Chest pain type: other chest pain Qualified Code(s): R07.89 - Other chest pain; R07.8 - Other chest pain (2) HTN (hypertension) SNOMED Code(s): 01741214 Code(s): I10 - ESSENTIAL (PRIMARY) HYPERTENSION Status: Acute Current Visit: Yes Qualifiers: Hypertension type: essential hypertension Qualified Code(s): I10 - Essential (primary) hypertension (3) Migraine SNOMED Code(s): 25147146 Code(s): G43.909 - MIGRAINE, UNSP, NOT INTRACTABLE, WITHOUT STATUS MIGRAINOSUS Status: Chronic Current Visit: Yes (4) GERD (gastroesophageal reflux disease) SNOMED Code(s): 128719501 Code(s): K21.9 - GASTRO-ESOPHAGEAL REFLUX DISEASE WITHOUT ESOPHAGITIS Status: Chronic Current Visit: Yes Qualifiers: Esophagitis presence: without esophagitis Qualified Code(s): K21.9 - Gastro -esophageal reflux disease without esophagitis (5) HLD (hyperlipidemia) SNOMED Code(s): 99997655 Code(s): E78.5 - HYPERLIPIDEMIA, UNSPECIFIED Status: Acute Current Visit : Yes Qualifiers: Hyperlipidemia type: unspecified Qualified Code(s): E78.5 - Hyperlipidemia , unspecified (6) Leukocytosis SNOMED Code(s): 291134200, 976188056 Code(s): D72.829 - ELEVATED WHITE BLOOD CELL COUNT, UNSPECIFIED Status: Acute Current Visit: Yes Qualifiers: Leukocytosis type: unspecified Qualified Code(s): D72.829 - Elevated white blood cell count, unspecified - Problem List Review Problem List Initiated/Reviewed/Updated: Yes - My Orders Last 24 Hours: My Active Orders 06/12/17 09:00 Propranolol [Inderal LA] 60 mg PO DAILY SUMAtriptan [Imitrex] 100 mg PO DAILY PRN 06/12/17 09:10 Height and Weight [RC] 06 06/12/17 09:11 Oxygen Therapy [RC] PRN 06/12/17 09:30 Pantoprazole [ProTONIX] 40 mg PO DAILY@0600 06/12/17 10:00 Ketotifen [Ketotifen 0.025% Ophth Soln] 0 ml EYEBOTH BID 06/12/17 17:11 Ketorolac [Toradol] 30 mg IVPUSH Q6H PRN 06/13/17 05:11 EKG 12 Lead [EK] AM - Plan Plan:: Jules has had negative cardiac enzymes. His EKG has remained normal. I will discharge him home today with an increased dose of propranolol for blood pressure and Migraine prophylaxis. He'll take aspirin daily and I have requested that he see Dr. Grimaldo him this weekend discuss chemical stress test.
[2017-06-13] MEDS: Ketotifen 0.025% Ophth Soln 5 ML Bottle EYEBOTH SCH (09:07)
[2017-06-13] MEDS: Propranolol 60 MG Cap.ER PO SCH (09:07)
== END 2017-06-13 14:15 | disposition home or self-care (01) ==
LOC: FB.ED 03:06 → FB.ICU 06:14
PROVIDERS: ADMIT Family Medicine; ATTEND Family Medicine
DX: R07.89 Other chest pain (principal); I10 Essential (primary) hypertension; G47.30 Sleep apnea, unspecified; K21.9 Gastro-esophageal reflux disease without esophagitis; G43.909 Migraine, unspecified, not intractable, without status migrainosus; E78.5 Hyperlipidemia, unspecified; D72.829 Elevated white blood cell count, unspecified; Z88.0 Allergy status to penicillin; Z88.8 Allergy status to other drugs, medicaments and biological substances; Z79.899 Other long term (current) drug therapy; Z87.891 Personal history of nicotine dependence
CPT/HCPCS: 36415; 71045; 80048; 80053; 80061; 80076; 81001; 82150; 83605; 84484; 85025; 85379; 85610; 93005; 96361; 96372; 96374; 96375; 99285; A9270; C9113; G0378; J1650; J1885; J3030; J7040

== ENCOUNTER 2017-07-04 23:35 | Observation (INO) | payer OTHER ==
[2017-07-04] MEDS: Sodium Chloride 0.9% 10 ML Syringe FLUSH PRN (23:54)
[2017-07-04] MEDS ORDERED: Ketorolac 30 MG/ML SDV IVPUSH ONE (23:57)
[2017-07-04] MEDS ORDERED: Ondansetron 4 MG/2 ML SDV IVPUSH ONE (23:57)
[2017-07-04] MEDS ORDERED: Metoclopramide 10 MG/2 ML SDV IVPUSH ONE (23:58)
[2017-07-05] MEDS ORDERED: Ondansetron 4 MG/2 ML SDV ONE (00:50)
[2017-07-05] MEDS: Sodium Chloride 0.9% 10 ML Syringe FLUSH PRN ×4 (01:12→02:17)
[2017-07-05] MEDS ORDERED: cefTRIAXone 1,000 MG VIAL IVPUSH ONE (01:20)
[2017-07-05] MEDS ORDERED: Ketorolac 30 MG/ML SDV IM PRN (01:36)
[2017-07-05] MEDS ORDERED: Ondansetron 4 MG/2 ML SDV IV PRN (01:36)
[2017-07-05] MEDS ORDERED: Acetaminophen 325 MG Tab PO PRN (01:36)
[2017-07-05] MEDS ORDERED: Morphine 2 MG/ML Syringe IVPUSH PRN (01:36)
--- NOTE | 2017-07-05 02:57 | ER ---
DATE SEEN: 07/04/2017 REASON FOR VISIT: Headaches. HISTORY OF PRESENT ILLNESS: This is a 51-year-old male with headache for 24 hours along with a fever. Headache is occipital, radiates to the front and characteristic of his usual migraine headaches. However, the fever is new. It is associated with nausea. He is unable to take Imitrex. He took that yesterday and ended up in the ER with recurrent chest pain. Of note, he was at a Cardiology appointment on Monday where he had 3 stents and is currently on Plavix. REVIEW OF SYSTEMS: He has no chest pain. He denies any constipation, urinary symptoms, or cough. No cold symptoms. He does complain of photophobia, but no neck stiffness. CURRENT MEDICATIONS: Please see the nurse's notes. ALLERGIES: Penicillin and prochlorperazine. PHYSICAL EXAMINATION: GENERAL: He is sick appearing. VITAL SIGNS: He has a temperature 100.2, blood pressure 151 systolic, normal respiratory rate and oxygenation 100%. HEAD: Normal size. NECK: Supple. EYES: Pupils are equal and reactive. CHEST: Clear. CARDIOVASCULAR: Normal. NEUROLOGIC: Nonfocal with normal cranial nerves and negative Kernig's and Brudzinski signs. LABORATORY DATA: White cell count is 25.8. CRP 7.0. Influenza A and B are negative. IMPRESSION: 1. Headache of unknown reason. 2. Acute febrile illness. 3. Leukocytosis with history of CLL. 4. History of migraine headaches. 5. Coronary artery disease with recent stents. PLAN: I called [facility] and spoke with the hospitalist who in turn spoke to the ER doc about lumbar puncture, but they were uncomfortable with that because of the Plavix. The suggestion was to keep him with IV antibiotics and his clinical status and judgment to see if he needs further treatment for meningitis. I will admit him overnight with fluids and pain control along with Rocephin 2 g. Blood cultures x2 are pending. /[id number] TIAGO/JANEEN
[2017-07-05] MEDS: Sodium Chloride 0.9% 1,000 ML IV SCH ×2 (03:07→10:42)
[2017-07-05] MEDS ORDERED: Ketorolac 30 MG/ML SDV IVPUSH PRN ×2 (06:12→09:41)
[2017-07-05] MEDS ORDERED: cefTRIAXone 2 GM in Sodium Chloride 0.9% 100 ML IV SCH (09:15)
[2017-07-05] MEDS ORDERED: Nitroglycerin 0.4 MG Tab.SL SL PRN (09:45)
[2017-07-05] MEDS: Rosuvastatin 10 MG Tab PO SCH (10:05)
[2017-07-05] MEDS: Metoprolol Succinate 25 MG Tab.ER PO SCH (10:06)
[2017-07-05] MEDS: Clopidogrel 75 MG Tab PO SCH (10:06)
[2017-07-05] MEDS: Lisinopril 5 MG Tab PO SCH (10:06)
[2017-07-05] MEDS: Pantoprazole 40 MG Tab.CR PO SCH (10:07)
[2017-07-05] MEDS: Morphine 10 MG/ML Syringe IVPUSH PRN ×2 (10:17→15:29)
[2017-07-05] MEDS: Aspirin 81 MG Tab.Chew PO SCH (10:40)
[2017-07-05] MEDS: Acetaminophen/Codeine 300-30 MG Tab PO PRN ×3 (12:56→21:23)
--- NOTE | 2017-07-05 13:15 | PN ---
DATE SEEN: 07/05/2017 Akash has had a reasonable day. Headache has been unresponsive to the morphine. There were no other neurological symptoms. We spoke at length about the degree of the headache location. Per his report, he has about one per week, minimum of 4 per month, responsive historically to the Imitrex. Given the recent episode of chest pain, not uncommon with triptans, we will avoid that. Cardiovascular status was reassessed during his recent hospital stay. Spoke to CT, MRI, not indicating, no other neurological symptoms. Identical to headaches that he has had in the past. We will add some Tylenol with codeine, given with food, complementary care and well being. Results to follow accordingly. /[id number] LISHA/JANEEN
--- NOTE | 2017-07-05 15:37 | HP ---
ADMISSION DATE: 07/05/2017 HISTORY OF PRESENT ILLNESS: Jules Taylor is a 51-year-old male, admitted through the ER. He has had a simba course over the last few days' duration. He underwent a left heart cath on 07/03/2017. He was found to have a significant narrowing in his circumflex, underwent 3 stenting, LAD 60%. He had some issues and implications with the right radial artery cath site, resolved without difficulty. Discharged home on appropriate medications. Went home, Tuesday 07/04, migraine appeared unexpectedly. Had been on propranolol, switched to metoprolol, took an Imitrex and developed severe chest pain. He was in [place] at that time. He was reevaluated, hospitalized. Intervention was provided. Symptomatic treatment. Recent diagnosis of CLL also. Under observation. Last evening, went home. His son had had an event and hit a deer. Had chills and sweats, low-grade fever, increasing headache. He was seen at [facility] ER, meningitis a concern. Plavix on board. Spinal tap not recommended. Dr. Parekh spoke at length with the staff at [facility], felt hospitalization and observation indicated. Blood cultures were obtained. Presently on intravenous Rocephin, one-time dose provided. Headache is abating with the use of analgesics. Present daily medications include ASA 81 mg one p.o. daily, Plavix 75 mg one daily, lisinopril 5 mg one daily, metoprolol 25 XL one daily, and p.r.n. nitroglycerin, omeprazole and sumatriptan has been held. ALLERGIES: No medication, environmental, or latex allergies. PAST MEDICAL HISTORY: Significant for multiple eye surgeries, retina surgeries, cataract surgery. Previous left elbow fracture and bilateral left and right knee scopes. He has had a fractured right thumb and fractured right toe. No other chronic illnesses except for recent diagnosis of CLL, migraine headaches, and recent coronary artery disease. SOCIAL HISTORY: Gainfully employed. Happily . 49. Daughter, 20 and son, 16. Nonsmoker. No alcohol consumption. No illicit drug use. FAMILY HISTORY: Dad of complications at 72 of lymphoma and COPD. Mom 72. One brother. No sisters. FAMILY HISTORY: Negative for early heart disease, diabetes mellitus, or inheritable cancers. REVIEW OF SYSTEMS: CONSTITUTIONAL: Feeling well this morning. Headache is a 3. No meningismus. Funduscopic benign. Bright TMs. Clear nasal discharge. Mouth and oropharynx clear. CHEST: Clear in all lung fierro. HEART: Regular rate without ectopy or murmur. ABDOMEN: Benign. No hepatosplenomegaly. AND RECTAL: Deferred. EXTREMITIES: Well-perfused. NEUROLOGICAL: Intact. LABORATORY STUDIES: Blood cultures negative. White count 25,800 and 24,400, hemoglobin is 13.3 and 12.9. Normal leukocyte. CRP of 5. Blood cultures negative. ASSESSMENT: Acute complicated headache, viral illness, viral meningitis a concern. PLAN: Hospitalization indicated, close observation, Rocephin on board. We will observe for 24 hours. Proceed accordingly. The patient is in agreement. /[id number] LISHA/JANEEN
[2017-07-05] MEDS ORDERED: Bisacodyl 5 MG Tab PO PRN (17:09)
[2017-07-06] MEDS: Sodium Chloride 0.9% 10 ML Syringe FLUSH PRN ×2 (00:47→09:42)
[2017-07-06] MEDS ORDERED: cefTRIAXone 2 GM Vial IV SCH (01:00)
[2017-07-06] MEDS: Morphine 10 MG/ML Syringe IVPUSH PRN ×2 (01:00→09:39)
[2017-07-06] MEDS: Acetaminophen/Codeine 300-30 MG Tab PO PRN ×2 (01:23→07:50)
[2017-07-06] MEDS: Pantoprazole 40 MG Tab.CR PO SCH (06:33)
[2017-07-06] MEDS: Aspirin 81 MG Tab.Chew PO SCH (09:26)
[2017-07-06] MEDS: Rosuvastatin 10 MG Tab PO SCH (09:26)
[2017-07-06] MEDS: Clopidogrel 75 MG Tab PO SCH (09:27)
[2017-07-06] MEDS: Lisinopril 5 MG Tab PO SCH (09:37)
[2017-07-06] MEDS: Metoprolol Succinate 25 MG Tab.ER PO SCH (09:38)
[2017-07-06] MEDS ORDERED: Acetaminophen/Butalbital/Caffeine 325-50-40 MG Tab PO PRN (10:06)
--- NOTE | 2017-07-06 16:39 | DISCH ---
DISCHARGE DATE: 07/06/2017 Jules Taylor is a 51-year-old, male from [place], [place], admitted through [facility]. On 07/03/2017, underwent heart catheterization, at [facility]. He was found to have circumflex disease with three stents and moderate disease left LAD. He had some issues of the right radial arm site with ecchymosis, but resolved. Went home, actually to his daughter's home in [place], migraine appeared Imitrex was consumed, went back to [facility], had a short-term stay, resultant chest pain noncardiac in nature but related to Imitrex, this was discontinued. Night prior to admission, he had fever, chills, sweats, disabling headache, nausea, vomiting. Suspicion for a viral meningitis. Spinal tap not performed due to presence of Plavix on board. PHYSICAL EXAMINATION: GENERAL: On admission, he is a bit lethargic. CHEST: Clear. HEART: Regular. ABDOMEN: Benign. Mild meningismus. SKIN: Without rash. LABORATORY STUDIES: White count 25,800, repeat 24,400. Lymphocytosis, known CLL, CRP 5, expected. Blood cultures morning of discharge, nothing growth to blood cultures. Influenza A and B were negative. Post hospital stay no issues, intravenous fluids, analgesics, pain control as appropriate, intervention and treatment as noted. We will avoid triptan in the meantime related to chest pain. We will offer some Fiorinal for headache intervention and control. At the time of discharge, he was very comfortable, and good for discharge. Appointment with Cardiology upcoming and planned. SURGICAL PROCEDURES: None. CONSULTATION: None. ADDENDUM: A 30-minute time spent in discharge planning, medications, discharge care, and followup. /[id number] LISHA/JANEEN
[2017-07-06] MEDS ORDERED: Metoprolol Succinate 25 MG Tab.ER PO SCH (18:00)
== END 2017-07-06 11:24 | disposition home or self-care (01) ==
LOC: FB.ED 23:35 → FB.MS 07-05 01:36
PROVIDERS: ADMIT Family Medicine; ATTEND Family Medicine
DX: G44.59 Other complicated headache syndrome (principal); G43.909 Migraine, unspecified, not intractable, without status migrainosus; B34.9 Viral infection, unspecified; C91.10 Chronic lymphocytic leukemia of B-cell type not having achieved remission; I25.10 Atherosclerotic heart disease of native coronary artery without angina pectoris; Z95.5 Presence of coronary angioplasty implant and graft; Z88.0 Allergy status to penicillin; Z88.8 Allergy status to other drugs, medicaments and biological substances
CPT/HCPCS: 36415; 80048; 85025; 86140; 87040; 87804; 96361; 96374; 96375; 96376; 99284; A9270; G0378; J0696; J1885; J2270; J2405; J2765; J7030; J7050

== ENCOUNTER 2020-01-29 06:49 | Day surgery (SDC) | payer BC ==
[~2020-01-29 06:49] MED LIST: Lactated Ringers 1,000 ML IV SCH; Sodium Chloride 0.9% 10 ML Syringe FLUSH PRN
[2020-01-29] MEDS ORDERED: Propofol 200 MG/20 ML SDV IV ONE (06:50)
[2020-01-29] MEDS ORDERED: Lidocaine 1% PF 2 ML SDV INJECT ONE (06:50)
--- NOTE | 2020-01-29 09:01 | PCM.OPNOTE ---
- General Post-Op/Procedure Note Date of Surgery/Procedure: 01/29/20 Operative Procedure(s): c scope with cold forceps biopsy Findings: transverse colon polyp Pre Op Diagnosis: constipation. right sided abd pain Post-Op Diagnosis: transverse colon polyp Anesthesia Technique: BERNICE Primary Surgeon: Lino Bee Anesthesia Provider: Franck Harkins Pathology: trans. colon polyp Complications: None Condition: Good Free Text/Narrative:: see dictation
--- NOTE | 2020-01-29 16:59 | OR ---
DATE OF OPERATION: 01/29/2020 SURGEON: Lino Bee MD PROCEDURE PERFORMED: Colonoscopy with cold forceps biopsy. PREOPERATIVE DIAGNOSES: 1. Right lower quadrant abdominal pain. 2. Constipation. POSTOPERATIVE DIAGNOSIS: Transverse colon polyp. INDICATIONS FOR PROCEDURE: This is a 54-year-old white male who was referred with a complaint of some constipation. He also suffers some intermittent right lower quadrant abdominal pain. As part of a workup, he was offered and accepted a colonoscopy. DESCRIPTION OF OPERATION: After an excellent IV sedation was administered, digital rectal exam was performed. No marked abnormality was noted. Flexible colonoscope was inserted and advanced to the cecum. The prep was excellent. The following findings were noted: Ascending colon unremarkable. Attempts to intubate the terminal ileum were not successful. Transverse colon: A small polypoid lesion approximately 4 mm in size, biopsied and obliterated with cold biopsy forceps. Descending colon was unremarkable. Sigmoid and rectum unremarkable. Colon was deflated as the scope was removed. The patient tolerated the procedure well. Results will be sent by letter. At this point, my recommendations are to add Metamucil, Citrucel, or other bulk fiber to his diet and drink plenty of fluids. If no improvement with constipation, he has been asked to contact me in my office via phone call or Inktdhart. /[id number] /JANEEN
== END 2020-01-29 10:04 | disposition home or self-care (01) ==
LOC: FB.SDS 06:49
PROVIDERS: ATTEND Surgery
DX: K63.5 Polyp of colon (principal); K59.00 Constipation, unspecified; G43.909 Migraine, unspecified, not intractable, without status migrainosus; I10 Essential (primary) hypertension; I25.10 Atherosclerotic heart disease of native coronary artery without angina pectoris; E78.49 Other hyperlipidemia; E66.3 Overweight; F41.1 Generalized anxiety disorder; Z79.899 Other long term (current) drug therapy; Z88.0 Allergy status to penicillin; Z88.8 Allergy status to other drugs, medicaments and biological substances; Z79.82 Long term (current) use of aspirin; Z87.891 Personal history of nicotine dependence; Z98.890 Other specified postprocedural states; Z68.31 Body mass index [BMI] 31.0-31.9, adult
CPT/HCPCS: 00812; 45380; 88305; J2001; J2704; J7120